=== PATIENT | female | born 2005 | race Caucasian/White ===

== ENCOUNTER 2023-07-19 15:59 | Inpatient (IN) | payer SELFPAY ==
[2023-07-18 23:30] VITALS: BP 144/77
[~2023-07-19] VITALS: Ht 167.7 cm; Wt 82.5 kg
[2023-07-19] VITALS (38 sets, daily range): BP systolic 130–179; BP diastolic 62–91
[2023-07-19] MEDS ORDERED: LABETALOL 5 mg/ml 4 ML SINGLE DOSE SYRINGE IV ONE ×2 (16:30→19:45)
[2023-07-19] MEDS ORDERED: LABETALOL 200 MG TABLET PO ONE (16:30)
[2023-07-19] MEDS ORDERED: BETAMETHASONE Acetate/Na Phosphate 6 MG/ML INJ IM SCH (16:30)
[2023-07-19] MEDS ORDERED: D5 LR 1,000 ML IV SOLN 1,000 ML IV SCH (16:30)
[2023-07-19 16:39] LABS: BASOPHILS % (AUTO) 0 % (0-10); EOSINOPHILS % (AUTO) 0 % (0-10); HEMATOCRIT 35 % (35-52); HEMOGLOBIN 12.2 g/dL (11.5-16.0); LYMPHOCYTES # (AUTO) 2.7 10^3/uL (1.0-4.0); LYMPHOCYTES % (AUTO) 29 % (12-44); MEAN CORPUSCULAR HEMOGLOBIN 33 pg (25-34); MEAN CORPUSCULAR HGB CONC 35 g/dL (32-36); MEAN CORPUSCULAR VOLUME 93 fL (80-99); MEAN PLATELET VOLUME 10.7 fL (9.0-12.2); MONOCYTES # (AUTO) 0.7 10^3/uL (0.0-1.0); MONOCYTES % (AUTO) 7 % (0-12); NEUTROPHILS # (AUTO) 5.9 10^3/uL (1.8-7.8); NEUTROPHILS % (AUTO) 63 % (42-75); PLATELET COUNT 252 10^3/uL (130-400); WHITE BLOOD COUNT 9.4 10^3/uL (4.3-11.0)
[2023-07-19 16:55] LABS: ALBUMIN 3.3 GM/DL (3.2-4.5); POTASSIUM 3.8 MMOL/L (3.6-5.0)
[2023-07-19 16:56] LABS: CALCIUM 9.4 MG/DL (8.5-10.1)
[2023-07-19 16:58] LABS: TOTAL PROTEIN 6.7 GM/DL (6.4-8.2)
[2023-07-19 16:59] LABS: BILIRUBIN,TOTAL 0.5 MG/DL (0.1-1.0)
[2023-07-19 17:01] LABS: CREATININE SERUM 0.69 MG/DL (0.60-1.30)
[2023-07-19] MEDS ORDERED: MAGNESIUM SULFATE DRIP 500 ML IV ONE (17:58)
[2023-07-19] MEDS ORDERED: MAGNESIUM 2 GM/50 ML IVPB 50 ML IV ONE (17:58)
[2023-07-19] MEDS ORDERED: MAGNESIUM 4 GM/100 ML IVPB 100 ML IV ONE (17:58)
--- NOTE | 2023-07-19 17:58 | Diagnostic Imaging Report ---
INDICATION: Possible toxemia. TECHNIQUE: Multiple real-time grayscale images were obtained over the gravid uterus. COMPARISON: None FINDINGS: There is a single live fetus in a cephalic presentation. heart rate was recorded at 143 bpm. Placenta is posterior. No previa is identified. Amniotic fluid index is 13.9 cm. Biophysical profile was performed with an overall score of 8 out of 8. No significant abnormality is detected. Biometrical measurements are as follows: Biparietal 8.45 cm, age 34 weeks 1 days. Head circumference 29.84 cm, age 33 weeks 1 days. Abdominal circumference 28.26 cm, age 32 weeks 3 days. Femur length 5.82 cm, age 30 weeks 3 days. Sonographic estimate age: 32 weeks 4 days. Sonographic estimated date of delivery: 09/09/2023. Estimated Weight: 1872 gm (+/- 273 gm). LMP percentile: 46%. heart rate: 143 beats per minute. number: 1 of 1. IMPRESSION: Single live IUP approximately 32-33 weeks gestational age. Biophysical profile score is normal at 8 out of 8. Dictated by: Dictated on workstation # [id number]
[2023-07-19] MEDS ORDERED: CALCIUM GLUCONATE 10% 4.65 MEQ/10 ML VIAL IV SCH (18:00)
[2023-07-19] MEDS ORDERED: MAGNESIUM 2 GM/50 ML IVPB 2 GM in MAGNESIUM 4 GM/100 ML IVPB 100 ML IV ONE (18:00)
--- NOTE | 2023-07-19 18:17 | History & Physical-OB ---
OB - Chief Complaint & HPI Date/Time Date of Admission: Date of Admission: Date seen by a Provider: Jul 19, 2023 Time Seen by a Provider: 17:30 Chief Complaint/History OB-Reason for Admission/Chief: Hx : 1 Hx Para: 0 Expected Date of Delivery: Sep 15, 2023 Gestational Age in Weeks: 31 Gestational Age in Days: 5 Other reason for admission: Patient sent in from Dr. Clarke office in [facility] with no care with BP 180s/100s. Denies any symptoms other than swollen legs which is what had brought her in. Admission Nurse Assessment Rev: Yes Allergies and Home Medications Allergies Coded Allergies: No Known Drug Allergies (Unverified , 07/19/23) Patient Home Medication List Home Medication List Reviewed: Yes OB - History Hx of Present Care: No Ultrasounds: No ultrasounds (BPP/ EFW done today) Obstetrical Complications: Pre-eclampsia Medical Complications: None Obstetrical History Hx : 1 Hx Para: 0 Hx Total # of Abortions (Spona: 0 Patient Past Medical History nc Social History/Family History Alcohol Use: Denies Use Recreational Drug Use: No OB - Admission Exam Physical Exam Vitals: Vital Signs 07/19/23 17:31 Temp 36.6 Pulse 64 Resp 18 B/P (MAP) 147/84 Pulse Ox 99 O2 Delivery Room Air HEENT: NCAT Heart: Rhythm Normal Lungs: Clear Abdomen: Gravid Extremities: Normal Reflexes: Normal Membranes: Intact Heart Rate: 130's Accelerations: Accelerations Present Decelerations: No Decelerations Short Term Variability: Present Pediatric Care Coordinator Variability: Average (6-25) Contractions on Admission: None Intensity: Mild Labs Laboratory Tests Test 07/19/23 16:05 07/19/23 16:30 07/19/23 16:45 07/19/23 18:04 Range/Units Urine Protein 119 H 6-12 MG/DL Urine Creatinine 23 L 30-125 MG/DL Urine Protein/Creatinine Ratio 5.17 White Blood Count 9.4 4.3-11.0 10^3/uL Red Blood Count 3.73 L 3.80-5.11 10^6/uL Hemoglobin 12.2 11.5-16.0 g/dL Hematocrit 35 35-52 % Mean Corpuscular Volume 93 80-99 fL Mean Corpuscular Hemoglobin 33 25-34 pg Mean Corpuscular Hemoglobin Concent 35 32-36 g/dL Red Cell Distribution Width 11.9 10.0-14.5 % Platelet Count 252 130-400 10^3/uL Mean Platelet Volume 10.7 9.0-12.2 fL Immature Granulocyte % (Auto) 0 % Neutrophils (%) (Auto) 63 42-75 % Lymphocytes (%) (Auto) 29 12-44 % Monocytes (%) (Auto) 7 0-12 % Eosinophils (%) (Auto) 0 0-10 % Basophils (%) (Auto) 0 0-10 % Neutrophils # (Auto) 5.9 1.8-7.8 10^3/uL Lymphocytes # (Auto) 2.7 1.0-4.0 10^3/uL Monocytes # (Auto) 0.7 0.0-1.0 10^3/uL Eosinophils # (Auto) 0.0 0.0-0.3 10^3/uL Basophils # (Auto) 0.0 0.0-0.1 10^3/uL Immature Granulocyte # (Auto) 0.0 0.0-0.1 10^3/uL Sodium Level 139 135-145 MMOL/L Potassium Level 3.8 3.6-5.0 MMOL/L Chloride Level 109 H 98-107 MMOL/L Carbon Dioxide Level 19 L 21-32 MMOL/L Anion Gap 11 5-14 MMOL/L Blood Urea Nitrogen 8 7-18 MG/DL Creatinine 0.69 0.60-1.30 MG/DL Estimat Glomerular Filtration Rate 127 BUN/Creatinine Ratio 12 Glucose Level 81 70-105 MG/DL Uric Acid 6.0 2.6-7.2 MG/DL Calcium Level 9.4 8.5-10.1 MG/DL Corrected Calcium 10.0 8.5-10.1 MG/DL Total Bilirubin 0.5 0.1-1.0 MG/DL Aspartate Amino Transf (AST/SGOT) 148 H 5-34 U/L Alanine Aminotransferase (ALT/SGPT) 262 H 0-55 U/L Alkaline Phosphatase 161 H 40-136 U/L Lactate Dehydrogenase 255 H 125-220 U/L Total Protein 6.7 6.4-8.2 GM/DL Albumin 3.3 3.2-4.5 GM/DL Thyroid Stimulating Hormone (TSH) 1.18 0.35-4.94 UIU/ML OB - Assessment/Plan/Diagnosis Assessment Admission Dx 18 y o @ 31.5 weeks Severe Preeclampsia Elevated liver enzymes No care Admission Status: Observation Plan Plan: Other Other Plan Patient admitted for transfer after lab values seen. Given 200 mg Labetalol PO and 10 mg IV Started MgSO4 infusion with 6 gm bolus Spoke with [facility] Dr. Gaspar and agree to accept transfer. VESNA GILL DO Jul 19, 2023 18:17
[2023-07-19] MEDS ORDERED: MAGNESIUM SULFATE DRIP 500 ML IV SCH (18:30)
[2023-07-19 19:05] LABS: CLARITY,URINE CLEAR; COLOR,URINE YELLOW; GLUCOSE, URINE (UA) NEGATIVE (NEGATIVE); KETONES,URINE NEGATIVE (NEGATIVE); NITRITE,URINE NEGATIVE (NEGATIVE); PH,URINE 6.5 (5-9); PROTEIN,URINE 2+ (NEGATIVE)
[2023-07-19 19:06] LABS: BACTERIA,URINE TRACE /HPF; BILIRUBIN,URINE NEGATIVE (NEGATIVE); LEUKOCYTE ESTERASE ,URINE NEGATIVE (NEGATIVE)
== END 2023-07-19 23:33 | disposition short-term general hospital (02) | DRG 833 ==
LOC: WSo 15:59 → LDRP 16:00 → WSo 18:11 → LDRP 18:11
PROVIDERS: ADMIT Obstetrics & Gynecology; ATTEND Obstetrics & Gynecology
DX: O14.13 Severe pre-eclampsia, third trimester (principal); R74.8 Abnormal levels of other serum enzymes; Z3A.31 31 weeks gestation of pregnancy
CPT/HCPCS: 36415; 76805; 76819; 80053; 81000; 82570; 83615; 84156; 84443; 84550; 85025; 86762; 86765; 86780; 86850; 86900; 86901; 87340; 87389; 99213